=== PATIENT | female | born 1940 | race Caucasian/White ===

== ENCOUNTER 2017-04-14 11:49 | Emergency (ER) | payer MEDICARE, MEDICAID ==
[2017-04-14 13:44] VITALS: BP 116/68
--- NOTE | 2017-04-14 14:07 | UC ---
Respiratory Complaint HPI - HPI Summary HPI Summary: Pt c/o URI symptoms that began 3 weeks ago. Pt reports that cough remains the same, nasal congestion has improved but continues to c/o chills and fatigue. - History of Current Complaint Chief Complaint: UCEar Stated Complaint: COUGH/EAR PAIN Time Seen by Provider: 04/14/17 13:57 Hx Obtained From: Patient Hx Last Menstrual Period: n/a ?: No Onset/Duration: Gradual Onset, Lasting Weeks, Still Present Timing: Constant Severity Initially: Mild Severity Currently: Mild Character: Cough: Productive - green Aggravating Factors: Exertion, Deep Breaths, Recumbent Position Alleviating Factors: Nothing Associated Signs And Symptoms: Positive: URI, Nasal Congestion - Risk Factors Pulmonary Embolism Risk Factors: Negative Cardiac Risk Factors: Negative Pseudomonas Risk Factors: Negative Tuberculosis Risk Factors: Negative - Allergies/Home Medications Allergies/Adverse Reactions: Allergies Allergy/AdvReac Type Severity Reaction Status Date / Time Acetaminophen Allergy Swelling Verified 04/14/17 13:44 [From NyQuil Nighttime Of Cold/Flu Medicine] Face,Lips,& Throat Adhesive Tape Allergy Blisters Verified 04/14/17 13:44 Dextromethorphan Allergy Swelling Verified 04/14/17 13:44 [From NyQuil Nighttime Of Cold/Flu Medicine] Face,Lips,& Throat Doxylamine Allergy Swelling Verified 04/14/17 13:44 [From NyQuil Nighttime Of Cold/Flu Medicine] Face,Lips,& Throat Ethanol [From Robitussin] Allergy Swelling Verified 04/14/17 13:44 Of Face,Lips,& Throat Guaifenesin [From Robitussin] Allergy Swelling Verified 04/14/17 13:44 Of Face,Lips,& Throat Pseudoephedrine Allergy Swelling Verified 04/14/17 13:44 [From NyQuil Nighttime Of Cold/Flu Medicine] Face,Lips,& Throat PMH/Surg Hx/FS Hx/Imm Hx Previously Healthy: Yes - Surgical History Surgical History: Yes Surgery Procedure, Year, and Place: [facility]. [facility] - Family History Known Family History: Positive: Cardiac Disease - Social History Occupation: Retired Lives: With Family Alcohol Use: None Substance Use Type: None Smoking Status (MU): Never Smoked Tobacco Have You Smoked in the Last Year: No Review of Systems Constitutional: Chills, Fatigue Skin: Negative Eyes: Negative ENT: Other - nasal congestion Respiratory: Cough Cardiovascular: Negative Gastrointestinal: Negative Genitourinary: Negative Motor: Negative Neurovascular: Negative Musculoskeletal: Negative Neurological: Negative Psychological: Negative Is Patient Immunocompromised?: No All Other Systems Reviewed And Are Negative: Yes Physical Exam Triage Information Reviewed: Yes Appearance: Well-Appearing Vital Signs: Initial Vital Signs Temp 98.3 F 04/14/17 13:39 Pulse 78 04/14/17 13:39 Resp 18 04/14/17 13:39 BP 116/68 04/14/17 13:39 Pulse Ox 96 04/14/17 13:39 Vital Signs Reviewed: Yes Eye Exam: Normal ENT Exam: Other ENT: Positive: Nasal congestion Dental Exam: Other Neck exam: Normal Respiratory Exam: Other Respiratory: Positive: Decreased breath sounds - bilateral bases Cardiovascular Exam: Normal Abdominal Exam: Normal Musculoskeletal Exam: Normal Neurological Exam: Normal Psychological Exam: Normal Skin Exam: Normal UC Diagnostic Evaluation - Laboratory O2 Sat by Pulse Oximetry: 96 Respiratory Course/Dx - Differential Dx/Diagnosis Differential Diagnosis/HQI/PQRI: Bronchitis, Influenza, Other - viral syndrome Provider Diagnoses: Bronchitis Discharge - Discharge Plan Condition: Stable Disposition: HOME Prescriptions: Amoxicillin PO (*) [Amoxicillin 500 MG CAP*] 500 mg PO Q12H #20 cap Patient Education Materials: Acute Bronchitis (ED) Referrals: Maximus Park MD [Primary Care Provider] - If Needed Additional Instructions: Please follow up with your PCP or return to clinic as needed.
== END 2017-04-14 14:16 | disposition home or self-care (01) ==
LOC: UCCORT 11:49
DX: J40 Bronchitis, not specified as acute or chronic (principal)
CPT/HCPCS: 99212; G0463